=== PATIENT | female | born 1945 | race Caucasian/White ===

== ENCOUNTER → 2016-08-05 | Outpatient (CLI) | payer OTHER ==
[2016-08-05 09:14] LABS: Basophils # (auto) 0 uL; Basophils % (auto) 0.7 % (0.0-2.0); Eosinophils # (auto) 0.3 uL; Eosinophils % (auto) 4.8 % (0.0-7.0); Hematocrit 40.8 % (36.0-46.0); Hemoglobin 13.5 g/dL (12.2-16.2); Mean Corpuscular Hemoglobin 32.7 pg (28.0-32.0); Mean Corpuscular Hgb Conc. 33.1 g/dL (32.0-36.0); Mean Platelet Volume 8.7 fL (7.4-10.4); Monocytes # (auto) 0.6 uL; Monocytes % (auto) 8.7 % (0.0-12.0); Neutrophils # (auto) 3.5 uL; Neutrophils % (auto) 54.8 % (37.0-80.0); Platelet Count (auto) 254 10^3/uL (140-450); Red Cell Distribution Width 15.7 % (11.6-16.0); White Blood Cell 6.4 10^3/uL (4.4-10.8)
[2016-08-05 09:29] LABS: Urine Bilirubin Negative (Negative); Urine Blood Negative /uL (Negative); Urine Color Yellow (Yellow); Urine Glucose Normal (Normal); Urine Hyaline Cast FEW /lpf (0 - 2); Urine Ketone Negative (Negative); Urine Nitrite Negative (Negative); Urine RBC 1 /hpf (0 - 4); Urine Squamous Epithelial Cell FEW /hpf (<5); Urine Urobilinogen Normal (Negative)
[2016-08-05 09:48] LABS: Albumin 3.7 g/dL (3.4-5.0); BUN/Creatinine Ratio 20.9; Bilirubin, Total 0.5 mg/dL (0.2-1.0); Calcium 9.2 mg/dL (8.5-10.1); Potassium 4.3 mmol/L (3.5-5.1); Total Protein 7.3 g/dL (6.4-8.2); Uric Acid 6.8 mg/dL (2.6-6.0)
== END | disposition home or self-care (01) ==
LOC: LAB 08:01
PROVIDERS: ATTEND Internal Medicine
DX: N18.3 Chronic kidney disease, stage 3 (moderate) (principal); I10 Essential (primary) hypertension
CPT/HCPCS: 36415; 80053; 80061; 81001; 82043; 82270; 83970; 84439; 84443; 84550; 85025; 85652

== ENCOUNTER → 2017-03-01 | Outpatient (CLI) | payer OTHER ==
[2017-03-01 10:25] LABS: Mean Corpuscular Hgb Conc. 33.4 g/dL (32.0-36.0); Monocytes # (auto) 0.6 uL; Neutrophils % (auto) 58.9 % (37.0-80.0); Nucleated Red Blood Cells % 0.2 %
[2017-03-01 10:27] LABS: Basophils # (auto) 0 uL; Basophils % (auto) 0.6 % (0.0-2.0); Eosinophils # (auto) 0.3 uL; Eosinophils % (auto) 3.9 % (0.0-7.0); Hematocrit 39.4 % (36.0-46.0); Hemoglobin 13.2 g/dL (12.2-16.2); Lymphocytes # (auto) 2.2 uL; Lymphocytes % (auto) 28.9 % (10.0-50.0); Mean Corpuscular Hemoglobin 34.1 pg (28.0-32.0); Mean Corpuscular Volume 102.2 fL (80.0-100.0); Monocytes % (auto) 7.7 % (0.0-12.0); Neutrophils # (auto) 4.4 uL; Platelet Count (auto) 222 10^3/uL (140-450); Red Blood Cells 3.86 10^6/uL (4.0-5.20); Red Cell Distribution Width 17.2 % (11.8-14.3); White Blood Cell 7.5 10^3/uL (4.4-10.8)
[2017-03-01 11:17] LABS: Albumin 3.7 g/dL (3.4-5.0); BUN/Creatinine Ratio 18.1; Bilirubin, Total 0.7 mg/dL (0.2-1.0); Calcium 8.8 mg/dL (8.5-10.1); Potassium 4.5 mmol/L (3.5-5.1); Total Protein 7.4 g/dL (6.4-8.2)
== END | disposition home or self-care (01) ==
LOC: LAB 09:23
PROVIDERS: ATTEND Internal Medicine
DX: I12.9 Hypertensive chronic kidney disease with stage 1 through stage 4 chronic kidney disease, or unspecified chronic kidney disease (principal); N18.3 Chronic kidney disease, stage 3 (moderate)
CPT/HCPCS: 36415; 80053; 83970; 84439; 84443; 85025

== ENCOUNTER 2017-06-11 14:19 | Emergency (ER) | payer OTHER ==
[2017-06-11 15:22] LABS: Eosinophils # (auto) 0.2 uL; Eosinophils % (auto) 2.4 % (0.0-7.0); Hemoglobin 13.8 g/dL (12.2-16.2); Neutrophils # (auto) 5.2 uL; Nucleated Red Blood Cells % 0.1 %
[2017-06-11 15:23] LABS: Basophils # (auto) 0 uL; Basophils % (auto) 0.5 % (0.0-2.0); Hematocrit 41.6 % (36.0-46.0); Lymphocytes % (auto) 15.1 % (10.0-50.0); Mean Corpuscular Hgb Conc. 33.2 g/dL (32.0-36.0); Monocytes # (auto) 0.4 uL; Monocytes % (auto) 5.2 % (0.0-12.0); Neutrophils % (auto) 76.8 % (37.0-80.0); Platelet Count (auto) 254 10^3/uL (140-450); Red Blood Cells 3.92 10^6/uL (4.0-5.20); Red Cell Distribution Width 15.4 % (11.8-14.3); White Blood Cell 6.7 10^3/uL (4.4-10.8)
[2017-06-11 15:25] LABS: Mean Corpuscular Volume 105.7 fL (80.0-100.0)
[2017-06-11 15:43] LABS: Alanine Aminotransferase 21 U/L (13-56); Albumin 3.9 g/dL (3.4-5.0); Alkaline Phosphatase 85 U/L (45-117); Anion Gap 9 (5-15); Aspartate Aminotransferase 23 U/L (15-37); BUN/Creatinine Ratio 14.7; Bilirubin, Total 0.6 mg/dL (0.2-1.0); Blood Urea Nitrogen 22 mg/dL (7-18); Calcium 9.1 mg/dL (8.5-10.1); Carbon Dioxide 26 mmol/L (21-32); Chloride 106 mmol/L (98-107); GFR African American 44 mL/min; GFR Non-African American 36 mL/min; Glucose 162 mg/dL (74-106); Magnesium 2.7 mg/dL (1.6-2.6); Potassium 4.6 mmol/L (3.5-5.1); Sodium 141 mmol/L (136-145); Total Protein 7.8 g/dL (6.4-8.2)
[2017-06-11 16:02] LABS: Urine Bacteria FEW /hpf (None Seen); Urine Blood Negative /uL (Negative); Urine Specific Gravity 1.007 (1.001-1.035); Urine WBC 12 /hpf (0 - 5)
[2017-06-11 17:31] VITALS: BP 215/110
[2017-06-11] MEDS ORDERED: cloNIDine HCL 0.1 MG TAB PO ONE (17:45)
[2017-06-11] MEDS ORDERED: METOPROLOL TARTRATE 50 MG TAB PO ONE (17:45)
== END 2017-06-11 19:29 | disposition left against medical advice (07) ==
LOC: ER 14:19
DX: R00.2 Palpitations (principal); Z53.21 Procedure and treatment not carried out due to patient leaving prior to being seen by health care provider
CPT/HCPCS: 36415; 71046; 80053; 81001; 83735; 84484; 85025; 93005

== ENCOUNTER 2017-06-13 13:02 | Emergency (ER) | payer OTHER ==
[~2017-06-13] VITALS: Ht 149.9 cm; Wt 80.7 kg
[2017-06-13] MEDS ORDERED: cloNIDine HCL 0.1 MG TAB PO ONE (13:30)
[2017-06-13] MEDS ORDERED: LORazepam 2MG/ML-1ML VIAL IV ONE (13:30)
[2017-06-13 13:39] LABS: Basophils # (auto) 0.1 uL; Eosinophils # (auto) 0.2 uL; Lymphocytes # (auto) 1.4 uL; Monocytes # (auto) 0.8 uL; Neutrophils # (auto) 5.1 uL; White Blood Cell 7.6 10^3/uL (4.4-10.8)
[2017-06-13 13:41] LABS: Basophils % (auto) 0.9 % (0.0-2.0); Eosinophils % (auto) 2.9 % (0.0-7.0); Hematocrit 42.3 % (36.0-46.0); Hemoglobin 13.9 g/dL (12.2-16.2); Lymphocytes % (auto) 18.4 % (10.0-50.0); Mean Corpuscular Hemoglobin 34.8 pg (28.0-32.0); Mean Corpuscular Hgb Conc. 32.8 g/dL (32.0-36.0); Monocytes % (auto) 10.8 % (0.0-12.0); Nucleated Red Blood Cells % 0.1 %; Platelet Count (auto) 259 10^3/uL (140-450); Red Blood Cells 3.99 10^6/uL (4.0-5.20)
[2017-06-13 13:42] LABS: Mean Corpuscular Volume 105.7 fL (80.0-100.0)
[2017-06-13 14:01] LABS: Alanine Aminotransferase 21 U/L (13-56); Alkaline Phosphatase 80 U/L (45-117); Anion Gap 10 (5-15); Aspartate Aminotransferase 23 U/L (15-37); BUN/Creatinine Ratio 17.7; Bilirubin, Total 0.6 mg/dL (0.2-1.0); Blood Urea Nitrogen 26 mg/dL (7-18); Calcium 9.4 mg/dL (8.5-10.1); Carbon Dioxide 24 mmol/L (21-32); Chloride 104 mmol/L (98-107); GFR African American 45 mL/min; GFR Non-African American 37 mL/min; Glucose 100 mg/dL (74-106); Potassium 4.6 mmol/L (3.5-5.1); Sodium 138 mmol/L (136-145)
[2017-06-13] MEDS ORDERED: IOHEXOL 350 MG/ML 100ML IJ ONE (15:04)
[2017-06-13 18:19] VITALS: BP 128/71
== END 2017-06-13 18:23 | disposition home or self-care (01) ==
LOC: ER 13:02 → MERGE 13:02 → ER 18:23
DX: I10 Essential (primary) hypertension (principal); Z88.8 Allergy status to other drugs, medicaments and biological substances
CPT/HCPCS: 36415; 70450; 71046; 74177; 80053; 84484; 85025; 87804; 93005; 99285; J7030; Q9967

== ENCOUNTER → 2017-08-28 | Outpatient (CLI) | payer OTHER ==
[2017-08-28 09:04] LABS: Basophils # (auto) 0 uL; Eosinophils # (auto) 0.2 uL; Hemoglobin 13.7 g/dL (12.2-16.2); Lymphocytes # (auto) 1.6 uL; Monocytes # (auto) 0.4 uL; Neutrophils # (auto) 3.1 uL; White Blood Cell 5.3 10^3/uL (4.4-10.8)
[2017-08-28 09:06] LABS: Basophils % (auto) 0.7 % (0.0-2.0); Eosinophils % (auto) 4.2 % (0.0-7.0); Hematocrit 40.5 % (36.0-46.0); Lymphocytes % (auto) 29.5 % (10.0-50.0); Mean Corpuscular Hemoglobin 35.2 pg (28.0-32.0); Mean Corpuscular Hgb Conc. 33.8 g/dL (32.0-36.0); Monocytes % (auto) 7.3 % (0.0-12.0); Neutrophils % (auto) 58.3 % (37.0-80.0); Nucleated Red Blood Cells % 0.1 %; Platelet Count (auto) 214 10^3/uL (140-450); Red Blood Cells 3.89 10^6/uL (4.0-5.20)
[2017-08-28 09:07] LABS: Urine Bacteria NONE SEEN /hpf (None Seen); Urine Blood Negative /uL (Negative); Urine Specific Gravity 1.022 (1.001-1.035); Urine WBC 27 /hpf (0 - 5)
[2017-08-28 09:33] LABS: BUN/Creatinine Ratio 20.1; Potassium 4.6 mmol/L (3.5-5.1)
[2017-08-28 09:34] LABS: Albumin 3.8 g/dL (3.4-5.0); Bilirubin, Total 0.7 mg/dL (0.2-1.0); Calcium 9.2 mg/dL (8.5-10.1); Total Protein 7.3 g/dL (6.4-8.2); Uric Acid 6.7 mg/dL (2.6-6.0)
[2017-08-28 10:45] LABS: Free T4 (Free Thyroxine) 1.52 ng/dL (0.89-1.76)
== END | disposition home or self-care (01) ==
LOC: LAB 07:53
PROVIDERS: ATTEND Internal Medicine
DX: I12.9 Hypertensive chronic kidney disease with stage 1 through stage 4 chronic kidney disease, or unspecified chronic kidney disease (principal); N18.3 Chronic kidney disease, stage 3 (moderate); R00.2 Palpitations
CPT/HCPCS: 36415; 80053; 80061; 81001; 82043; 82607; 84439; 84443; 84550; 85025; 85652

== ENCOUNTER → 2017-12-07 | Outpatient (CLI) | payer OTHER ==
[2017-12-07 09:35] LABS: Basophils # (auto) 0 uL; Basophils % (auto) 0.8 % (0.0-2.0); Eosinophils # (auto) 0.2 uL; Eosinophils % (auto) 3.9 % (0.0-7.0); Hematocrit 42.9 % (36.0-46.0); Hemoglobin 13.9 g/dL (12.2-16.2); Lymphocytes # (auto) 1.5 uL; Mean Corpuscular Hemoglobin 27.8 pg (28.0-32.0); Mean Corpuscular Hgb Conc. 32.4 g/dL (32.0-36.0); Mean Corpuscular Volume 85.9 fL (80.0-100.0); Monocytes # (auto) 0.6 uL; Monocytes % (auto) 10.6 % (0.0-12.0); Neutrophils # (auto) 3.5 uL; Neutrophils % (auto) 59.7 % (37.0-80.0); Platelet Count (auto) 222 10^3/uL (140-450); Red Blood Cells 4.99 10^6/uL (4.0-5.20); Red Cell Distribution Width 14.7 % (11.8-14.3); White Blood Cell 5.8 10^3/uL (4.4-10.8)
[2017-12-07 09:57] LABS: Albumin 3.6 g/dL (3.4-5.0); BUN/Creatinine Ratio 13.3; Bilirubin, Total 0.7 mg/dL (0.2-1.0); Calcium 8.6 mg/dL (8.5-10.1); Potassium 4.1 mmol/L (3.5-5.1); Total Protein 7.3 g/dL (6.4-8.2)
== END | disposition home or self-care (01) ==
LOC: LAB 09:08
PROVIDERS: ATTEND Internal Medicine
DX: Z12.11 Encounter for screening for malignant neoplasm of colon (principal); I12.9 Hypertensive chronic kidney disease with stage 1 through stage 4 chronic kidney disease, or unspecified chronic kidney disease; N18.3 Chronic kidney disease, stage 3 (moderate); Z88.8 Allergy status to other drugs, medicaments and biological substances
CPT/HCPCS: 36415; 80053; 82270; 83970; 84550; 85025

== ENCOUNTER → 2018-07-27 | Outpatient (CLI) | payer OTHER ==
[2018-07-27 09:23] LABS: Basophils # (auto) 0.1 uL; Basophils % (auto) 0.9 % (0.0-2.0); Eosinophils # (auto) 0.3 uL; Eosinophils % (auto) 4.8 % (0.0-7.0); Hematocrit 43.8 % (36.0-46.0); Hemoglobin 14.2 g/dL (12.2-16.2); Lymphocytes # (auto) 1.7 uL; Mean Corpuscular Hemoglobin 27.1 pg (28.0-32.0); Mean Corpuscular Hgb Conc. 32.5 g/dL (32.0-36.0); Mean Corpuscular Volume 83.7 fL (80.0-100.0); Monocytes # (auto) 0.6 uL; Monocytes % (auto) 10.4 % (0.0-12.0); Neutrophils # (auto) 3.1 uL; Neutrophils % (auto) 54.9 % (37.0-80.0); Nucleated Red Blood Cells % 0.2 %; Platelet Count (auto) 223 10^3/uL (140-450); Red Blood Cells 5.24 10^6/uL (4.0-5.20); Red Cell Distribution Width 14.6 % (11.8-14.3); White Blood Cell 5.7 10^3/uL (4.4-10.8)
[2018-07-27 09:26] LABS: Urine Bacteria NONE SEEN /hpf (None Seen); Urine Blood TRACE /uL (Negative); Urine WBC 8 /hpf (0 - 5)
[2018-07-27 09:38] LABS: Free T4 (Free Thyroxine) 1.43 ng/dL (0.89-1.76)
[2018-07-27 10:58] LABS: Albumin 3.6 g/dL (3.4-5.0); BUN/Creatinine Ratio 13.5; Bilirubin, Total 0.6 mg/dL (0.2-1.0); Calcium 9.2 mg/dL (8.5-10.1); Total Protein 6.8 g/dL (6.4-8.2); Uric Acid 5.6 mg/dL (2.6-6.0)
== END | disposition home or self-care (01) ==
LOC: LAB 08:34
PROVIDERS: ATTEND Internal Medicine
DX: I12.9 Hypertensive chronic kidney disease with stage 1 through stage 4 chronic kidney disease, or unspecified chronic kidney disease (principal); N18.3 Chronic kidney disease, stage 3 (moderate)
CPT/HCPCS: 36415; 80053; 80061; 81001; 82043; 82607; 83970; 84439; 84443; 84550; 85025; 85652

== ENCOUNTER → 2018-12-24 | Outpatient (CLI) | payer OTHER ==
[2018-12-24 09:45] LABS: Urine Bacteria NONE SEEN /hpf (None Seen); Urine Blood Negative /uL (Negative); Urine Specific Gravity 1.008 (1.001-1.035); Urine WBC 7 /hpf (0 - 5)
== END | disposition home or self-care (01) ==
LOC: LAB 09:23
PROVIDERS: ATTEND Internal Medicine
DX: R31.29 Other microscopic hematuria (principal)
CPT/HCPCS: 81001

== ENCOUNTER → 2019-01-04 | Outpatient (CLI) | payer OTHER ==
[2019-01-04 10:35] LABS: Basophils # (auto) 0 uL; Basophils % (auto) 0.6 % (0.0-2.0); Eosinophils # (auto) 0.3 uL; Hematocrit 43.3 % (36.0-46.0); Hemoglobin 14.3 g/dL (12.2-16.2); Lymphocytes # (auto) 1.6 uL; Lymphocytes % (auto) 24.8 % (10.0-50.0); Mean Corpuscular Hgb Conc. 33.1 g/dL (32.0-36.0); Mean Corpuscular Volume 84.7 fL (80.0-100.0); Monocytes # (auto) 0.7 uL; Monocytes % (auto) 10.2 % (0.0-12.0); Neutrophils # (auto) 3.9 uL; Neutrophils % (auto) 60.4 % (37.0-80.0); Platelet Count (auto) 225 10^3/uL (140-450); Red Blood Cells 5.12 10^6/uL (4.0-5.20); Red Cell Distribution Width 14.3 % (11.8-14.3); White Blood Cell 6.5 10^3/uL (4.4-10.8)
[2019-01-04 10:52] LABS: Albumin 3.8 g/dL (3.4-5.0); Calcium 9.4 mg/dL (8.5-10.1)
[2019-01-04 10:57] LABS: BUN/Creatinine Ratio 15.5; Bilirubin, Total 0.7 mg/dL (0.2-1.0); Total Protein 7.4 g/dL (6.4-8.2)
== END | disposition home or self-care (01) ==
LOC: LAB 09:28
PROVIDERS: ATTEND Internal Medicine
DX: I12.9 Hypertensive chronic kidney disease with stage 1 through stage 4 chronic kidney disease, or unspecified chronic kidney disease (principal); N18.3 Chronic kidney disease, stage 3 (moderate); R35.1 Nocturia
CPT/HCPCS: 36415; 80053; 82270; 83036; 83970; 84439; 84443; 85025

== ENCOUNTER → 2019-01-31 | Outpatient (CLI) | payer OTHER ==
[2019-01-31 16:32] LABS: Urine Bacteria NONE SEEN /hpf (None Seen); Urine Blood Negative /uL (Negative); Urine Specific Gravity 1.009 (1.001-1.035); Urine WBC 6 /hpf (0 - 5)
[2019-01-31 16:44] LABS: Basophils # (auto) 0.1 uL; Basophils % (auto) 1.3 % (0.0-2.0); Eosinophils # (auto) 0.2 uL; Eosinophils % (auto) 3.5 % (0.0-7.0); Hematocrit 43.3 % (36.0-46.0); Hemoglobin 14.3 g/dL (12.2-16.2); Lymphocytes # (auto) 1.5 uL; Lymphocytes % (auto) 20.9 % (10.0-50.0); Mean Corpuscular Hemoglobin 27.9 pg (28.0-32.0); Mean Corpuscular Volume 84.7 fL (80.0-100.0); Monocytes # (auto) 0.7 uL; Neutrophils # (auto) 4.5 uL; Neutrophils % (auto) 64.3 % (37.0-80.0); Platelet Count (auto) 237 10^3/uL (140-450); Red Blood Cells 5.12 10^6/uL (4.0-5.20); Red Cell Distribution Width 14.2 % (11.8-14.3)
[2019-01-31 16:52] LABS: Albumin 3.7 g/dL (3.4-5.0); Calcium 9.1 mg/dL (8.5-10.1); Potassium 4.3 mmol/L (3.5-5.1)
[2019-01-31 16:56] LABS: BUN/Creatinine Ratio 14.8; Bilirubin, Total 0.4 mg/dL (0.2-1.0); Total Protein 7.2 g/dL (6.4-8.2)
== END | disposition home or self-care (01) ==
LOC: LAB 16:00
PROVIDERS: ATTEND Internal Medicine
DX: R21 Rash and other nonspecific skin eruption (principal); I10 Essential (primary) hypertension
CPT/HCPCS: 36415; 80053; 81001; 84439; 84443; 85025; 85652; 87040

== ENCOUNTER → 2019-09-17 | Outpatient (CLI) | payer OTHER ==
[2019-09-17 09:50] LABS: Basophils # (auto) 0.1 10 ^3/uL (0-0.2); Basophils % (auto) 1.2 % (0.0-2.0); Eosinophils # (auto) 0.3 10 ^3/uL (0-0.8); Eosinophils % (auto) 4.2 % (0.0-7.0); Hemoglobin 14.5 g/dL (12.2-16.2); Lymphocytes # (auto) 1.3 10 ^3/uL (0.4-5.4); Lymphocytes % (auto) 20.3 % (10.0-50.0); Mean Corpuscular Hemoglobin 27.7 pg (28.0-32.0); Mean Corpuscular Hgb Conc. 32.9 g/dL (32.0-36.0); Mean Corpuscular Volume 84.1 fL (80.0-100.0); Monocytes # (auto) 0.6 10 ^3/uL (0-1.3); Neutrophils % (auto) 65.3 % (37.0-80.0); Platelet Count (auto) 214 10^3/uL (140-450); Red Blood Cells 5.23 10^6/uL (4.0-5.20); Red Cell Distribution Width 14.3 % (11.8-14.3); White Blood Cell 6.2 10^3/uL (4.4-10.8)
[2019-09-17 09:58] LABS: Urine Bacteria NONE SEEN /hpf (None Seen); Urine Blood Negative /uL (Negative); Urine Specific Gravity 1.017 (1.001-1.035); Urine WBC 15 /hpf (0 - 5)
[2019-09-17 10:21] LABS: Calcium 8.9 mg/dL (8.5-10.1); Potassium 4.4 mmol/L (3.5-5.1)
[2019-09-17 10:34] LABS: Albumin 3.5 g/dL (3.4-5.0); BUN/Creatinine Ratio 16.8; Bilirubin, Total 0.6 mg/dL (0.2-1.0); Uric Acid 5.6 mg/dL (2.6-6.0)
== END | disposition home or self-care (01) ==
LOC: LAB 09:24
PROVIDERS: ATTEND Internal Medicine
DX: I12.9 Hypertensive chronic kidney disease with stage 1 through stage 4 chronic kidney disease, or unspecified chronic kidney disease (principal); N18.3 Chronic kidney disease, stage 3 (moderate); E05.80 Other thyrotoxicosis without thyrotoxic crisis or storm
CPT/HCPCS: 36415; 80053; 80061; 81001; 82043; 83970; 84439; 84443; 84550; 85025; 85652

== ENCOUNTER → 2019-10-29 | Outpatient (CLI) | payer OTHER ==
[2019-10-29 10:25] LABS: Basophils # (auto) 0.1 10 ^3/uL (0-0.2); Basophils % (auto) 1.3 % (0.0-2.0); Eosinophils # (auto) 0.2 10 ^3/uL (0-0.8); Eosinophils % (auto) 3.4 % (0.0-7.0); Hematocrit 43.9 % (36.0-46.0); Hemoglobin 14.5 g/dL (12.2-16.2); Lymphocytes # (auto) 1.5 10 ^3/uL (0.4-5.4); Lymphocytes % (auto) 23.9 % (10.0-50.0); Mean Corpuscular Hemoglobin 27.9 pg (28.0-32.0); Mean Corpuscular Hgb Conc. 33.1 g/dL (32.0-36.0); Mean Corpuscular Volume 84.3 fL (80.0-100.0); Monocytes # (auto) 0.6 10 ^3/uL (0-1.3); Monocytes % (auto) 10.3 % (0.0-12.0); Neutrophils # (auto) 3.8 10 ^3/uL (1.6-8.6); Neutrophils % (auto) 61.1 % (37.0-80.0); Platelet Count (auto) 232 10^3/uL (140-450); Red Blood Cells 5.21 10^6/uL (4.0-5.20); Red Cell Distribution Width 14.1 % (11.8-14.3); White Blood Cell 6.2 10^3/uL (4.4-10.8)
[2019-10-29 10:36] LABS: Urine Bacteria NONE SEEN /hpf (None Seen); Urine Blood Negative /uL (Negative); Urine Specific Gravity 1.015 (1.001-1.035); Urine WBC <1 /hpf (0 - 5)
[2019-10-29 11:03] LABS: Albumin 3.6 g/dL (3.4-5.0); Calcium 8.9 mg/dL (8.5-10.1); Potassium 4.2 mmol/L (3.5-5.1)
[2019-10-29 11:07] LABS: BUN/Creatinine Ratio 18.9; Bilirubin, Total 0.6 mg/dL (0.2-1.0); Total Protein 7.4 g/dL (6.4-8.2); Uric Acid 5.6 mg/dL (2.6-6.0)
[2019-10-29 11:14] LABS: Free T4 (Free Thyroxine) 1.34 ng/dL (0.89-1.76)
== END | disposition home or self-care (01) ==
LOC: LAB 09:48
PROVIDERS: ATTEND Internal Medicine
DX: I12.9 Hypertensive chronic kidney disease with stage 1 through stage 4 chronic kidney disease, or unspecified chronic kidney disease (principal); N18.3 Chronic kidney disease, stage 3 (moderate); M46.1 Sacroiliitis, not elsewhere classified
CPT/HCPCS: 36415; 80053; 81001; 82306; 82607; 83970; 84439; 84443; 84550; 85025; 85652; 86038; 86200; 86431

== ENCOUNTER → 2020-02-21 | Outpatient (CLI) | payer OTHER ==
[2020-02-21 10:31] LABS: Basophils # (auto) 0.1 10 ^3/uL (0-0.2); Basophils % (auto) 1.7 % (0.0-2.0); Eosinophils # (auto) 0.3 10 ^3/uL (0-0.8); Eosinophils % (auto) 4.1 % (0.0-7.0); Hematocrit 46.7 % (36.0-46.0); Hemoglobin 15.5 g/dL (12.2-16.2); Lymphocytes # (auto) 1.5 10 ^3/uL (0.4-5.4); Lymphocytes % (auto) 22.7 % (10.0-50.0); Mean Corpuscular Hemoglobin 28.4 pg (28.0-32.0); Mean Corpuscular Hgb Conc. 33.3 g/dL (32.0-36.0); Mean Corpuscular Volume 85.4 fL (80.0-100.0); Monocytes # (auto) 0.8 10 ^3/uL (0-1.3); Monocytes % (auto) 11.9 % (0.0-12.0); Neutrophils % (auto) 59.6 % (37.0-80.0); Nucleated Red Blood Cells % 0.1 %; Platelet Count (auto) 226 10^3/uL (140-450); Red Blood Cells 5.47 10^6/uL (4.0-5.20); Red Cell Distribution Width 14.2 % (11.8-14.3); White Blood Cell 6.7 10^3/uL (4.4-10.8)
[2020-02-21 10:33] LABS: Albumin 3.6 g/dL (3.4-5.0); Calcium 9.3 mg/dL (8.5-10.1); Potassium 4.3 mmol/L (3.5-5.1)
[2020-02-21 10:37] LABS: BUN/Creatinine Ratio 23.9; Bilirubin, Total 0.5 mg/dL (0.2-1.0); Total Protein 7.2 g/dL (6.4-8.2); Uric Acid 6.7 mg/dL (2.6-6.0)
== END | disposition home or self-care (01) ==
LOC: LAB 09:42
PROVIDERS: ATTEND Internal Medicine
DX: I12.9 Hypertensive chronic kidney disease with stage 1 through stage 4 chronic kidney disease, or unspecified chronic kidney disease (principal); N18.30 Chronic kidney disease, stage 3 unspecified
CPT/HCPCS: 36415; 80053; 83970; 84443; 84550; 85025

== ENCOUNTER → 2020-06-05 | Outpatient (CLI) | payer OTHER ==
[2020-06-05 10:12] LABS: Basophils # (auto) 0.1 10 ^3/uL (0-0.2); Eosinophils # (auto) 0.3 10 ^3/uL (0-0.8); Eosinophils % (auto) 4.1 % (0.0-7.0); Hematocrit 42.2 % (36.0-46.0); Hemoglobin 14.3 g/dL (12.2-16.2); Lymphocytes # (auto) 1.4 10 ^3/uL (0.4-5.4); Lymphocytes % (auto) 21.4 % (10.0-50.0); Mean Corpuscular Hemoglobin 28.9 pg (28.0-32.0); Mean Corpuscular Hgb Conc. 33.8 g/dL (32.0-36.0); Mean Corpuscular Volume 85.6 fL (80.0-100.0); Monocytes # (auto) 0.7 10 ^3/uL (0-1.3); Monocytes % (auto) 11.2 % (0.0-12.0); Neutrophils % (auto) 62.3 % (37.0-80.0); Platelet Count (auto) 225 10^3/uL (140-450); Red Blood Cells 4.93 10^6/uL (4.0-5.20); Red Cell Distribution Width 13.8 % (11.8-14.3); White Blood Cell 6.4 10^3/uL (4.4-10.8)
[2020-06-05 10:18] LABS: Urine Bacteria NONE SEEN /hpf (None Seen); Urine Blood Negative /uL (Negative); Urine Specific Gravity 1.018 (1.001-1.035); Urine WBC 13 /hpf (0 - 5)
[2020-06-05 10:40] LABS: Potassium 4.8 mmol/L (3.5-5.1)
[2020-06-05 10:49] LABS: Albumin 3.5 g/dL (3.4-5.0); Bilirubin, Total 0.6 mg/dL (0.2-1.0); Calcium 8.8 mg/dL (8.5-10.1); Phosphorus 3.4 mg/dL (2.5-4.90); Total Protein 7.2 g/dL (6.4-8.2); Uric Acid 8.3 mg/dL (2.6-6.0)
== END | disposition home or self-care (01) ==
LOC: LAB 09:46
PROVIDERS: ATTEND Internal Medicine
DX: I12.9 Hypertensive chronic kidney disease with stage 1 through stage 4 chronic kidney disease, or unspecified chronic kidney disease (principal); N18.30 Chronic kidney disease, stage 3 unspecified; Z86.2 Personal history of diseases of the blood and blood-forming organs and certain disorders involving the immune mechanism
CPT/HCPCS: 36415; 80053; 80061; 81001; 83970; 84100; 84439; 84443; 84550; 85025

== ENCOUNTER 2020-07-31 12:29 | Emergency (ER) | payer OTHER ==
[~2020-07-31] VITALS: Ht 152.4 cm; Wt 83.5 kg
[2020-07-31] MEDS ORDERED: cefTRIAXone 1GM/50ML D5W 50 ML IV ONE (15:15)
[2020-07-31 15:40] LABS: Basophils # (auto) 0.1 10 ^3/uL (0-0.2); Basophils % (auto) 0.6 % (0.0-2.0); Eosinophils # (auto) 0.2 10 ^3/uL (0-0.8); Hematocrit 46.2 % (36.0-46.0); Hemoglobin 15.7 g/dL (12.2-16.2); Lymphocytes # (auto) 1.7 10 ^3/uL (0.4-5.4); Mean Corpuscular Hemoglobin 29.1 pg (28.0-32.0); Mean Corpuscular Volume 85.7 fL (80.0-100.0); Monocytes # (auto) 0.9 10 ^3/uL (0-1.3); Monocytes % (auto) 9.4 % (0.0-12.0); Neutrophils # (auto) 6.5 10 ^3/uL (1.6-8.6); Nucleated Red Blood Cells % 0.1 %; Platelet Count (auto) 203 10^3/uL (140-450); Red Blood Cells 5.39 10^6/uL (4.0-5.20); Red Cell Distribution Width 13.8 % (11.8-14.3); White Blood Cell 9.3 10^3/uL (4.4-10.8)
[2020-07-31 15:58] LABS: BUN/Creatinine Ratio 18.4; Calcium 9.5 mg/dL (8.5-10.1); Potassium 4.8 mmol/L (3.5-5.1)
[2020-07-31] MEDS ORDERED: KETOROLAC TROMETH 30 MG/ML 1ML VIAL IV ONE (16:30)
== END 2020-07-31 17:01 | disposition home or self-care (01) ==
LOC: ER 12:29
DX: I80.02 Phlebitis and thrombophlebitis of superficial vessels of left lower extremity (principal); I83.812 Varicose veins of left lower extremity with pain; I10 Essential (primary) hypertension; E78.5 Hyperlipidemia, unspecified
CPT/HCPCS: 36415; 80048; 85025; 93971; 96365; 96375; 99284; J0696; J1885

== ENCOUNTER → 2020-11-04 | Outpatient (CLI) | payer OTHER ==
[2020-11-04 12:05] LABS: Basophils # (auto) 0.1 10 ^3/uL (0-0.2); Basophils % (auto) 1.1 % (0.0-2.0); Eosinophils # (auto) 0.1 10 ^3/uL (0-0.8); Eosinophils % (auto) 1.9 % (0.0-7.0); Hematocrit 42.8 % (36.0-46.0); Hemoglobin 14.6 g/dL (12.2-16.2); Lymphocytes # (auto) 1.3 10 ^3/uL (0.4-5.4); Lymphocytes % (auto) 20.4 % (10.0-50.0); Mean Corpuscular Hemoglobin 29.1 pg (28.0-32.0); Mean Corpuscular Volume 85.6 fL (80.0-100.0); Monocytes # (auto) 0.6 10 ^3/uL (0-1.3); Monocytes % (auto) 9.9 % (0.0-12.0); Neutrophils # (auto) 4.3 10 ^3/uL (1.6-8.6); Neutrophils % (auto) 66.7 % (37.0-80.0); Nucleated Red Blood Cells % 0.1 %; Platelet Count (auto) 200 10^3/uL (140-450); Red Blood Cells 5.01 10^6/uL (4.0-5.20); Red Cell Distribution Width 15.1 % (11.8-14.3); White Blood Cell 6.5 10^3/uL (4.4-10.8)
[2020-11-04 12:49] LABS: Albumin 3.7 g/dL (3.4-5.0); Calcium 9.3 mg/dL (8.5-10.1)
[2020-11-04 12:52] LABS: BUN/Creatinine Ratio 15.1; Bilirubin, Total 0.5 mg/dL (0.2-1.0); Total Protein 7.3 g/dL (6.4-8.2); Uric Acid 4.9 mg/dL (2.6-6.0)
== END | disposition home or self-care (01) ==
LOC: LAB 11:45
PROVIDERS: ATTEND Internal Medicine
DX: I12.9 Hypertensive chronic kidney disease with stage 1 through stage 4 chronic kidney disease, or unspecified chronic kidney disease (principal); N18.30 Chronic kidney disease, stage 3 unspecified
CPT/HCPCS: 36415; 80053; 84550; 85025; 85049

== ENCOUNTER 2020-12-30 12:22 | Day surgery (SDC) | payer OTHER ==
[2020-12-25 10:53] LABS: Basophils # (auto) 0.1 10 ^3/uL (0-0.2); Basophils % (auto) 1.1 % (0.0-2.0); Eosinophils # (auto) 0.1 10 ^3/uL (0-0.8); Eosinophils % (auto) 2.1 % (0.0-7.0); Hematocrit 43.4 % (36.0-46.0); Hemoglobin 14.6 g/dL (12.2-16.2); Lymphocytes # (auto) 1.1 10 ^3/uL (0.4-5.4); Lymphocytes % (auto) 16.1 % (10.0-50.0); Mean Corpuscular Hgb Conc. 33.6 g/dL (32.0-36.0); Mean Corpuscular Volume 86.4 fL (80.0-100.0); Monocytes # (auto) 0.7 10 ^3/uL (0-1.3); Monocytes % (auto) 9.5 % (0.0-12.0); Neutrophils # (auto) 4.9 10 ^3/uL (1.6-8.6); Neutrophils % (auto) 71.2 % (37.0-80.0); Nucleated Red Blood Cells % 0.1 %; Red Blood Cells 5.03 10^6/uL (4.0-5.20); Red Cell Distribution Width 14.7 % (11.8-14.3); White Blood Cell 6.9 10^3/uL (4.4-10.8)
[2020-12-25 11:21] LABS: Potassium 5.1 mmol/L (3.5-5.1)
[2020-12-25 11:28] LABS: Albumin 3.5 g/dL (3.4-5.0); Bilirubin, Total 0.5 mg/dL (0.2-1.0); Calcium 8.6 mg/dL (8.5-10.1); Total Protein 7.2 g/dL (6.4-8.2)
[~2020-12-30] VITALS: Ht 152.4 cm; Wt 82.6 kg
[~2020-12-30 12:22] MED LIST: ACET-1304 PO; ALLO300T2 PO; ASCO500T11 PO; ASPI1TAB20 PO; ATOR10TA PO; CHOL400T21 PO; CLON0.1T EXT; CYA100I IM; ENAL20TA8 PO; LATA0.0019 EACHEYE; LEVO75TA6 PO; METO25TA93 PO
[2020-12-30] MEDS ORDERED: SODIUM CHLORIDE LOCK 10 ML ONE (12:39)
[2020-12-30] MEDS ORDERED: LIDOCAINE VISCOUS 2% 15ML UD ONE (12:39)
[2020-12-30] MEDS: fentaNYL CITRATE 100 MCG/2 ML VL ONE ×3 (13:53→14:00)
[2020-12-30] MEDS: MIDAZOLAM HCL 5 MG/ML-1ML VIAL ONE ×3 (13:53→14:03)
[2020-12-30] MEDS: diphenhdrAMINE HCL 50 MG/1 ML VL ONE ×2 (13:53→13:56)
[2020-12-30 14:45] VITALS: BP 136/64
== END 2020-12-30 14:50 | disposition home or self-care (01) ==
LOC: GI 12:22
PROVIDERS: ATTEND Internal Medicine Gastroenterology
DX: R13.10 Dysphagia, unspecified (principal); K31.89 Other diseases of stomach and duodenum; K29.50 Unspecified chronic gastritis without bleeding; I10 Essential (primary) hypertension; E78.5 Hyperlipidemia, unspecified; K21.9 Gastro-esophageal reflux disease without esophagitis; K44.9 Diaphragmatic hernia without obstruction or gangrene; K31.9 Disease of stomach and duodenum, unspecified; Z20.822 Contact with and (suspected) exposure to COVID-19; Z79.82 Long term (current) use of aspirin; Z98.890 Other specified postprocedural states; Z88.1 Allergy status to other antibiotic agents; Z88.8 Allergy status to other drugs, medicaments and biological substances; Z68.35 Body mass index [BMI] 35.0-35.9, adult
CPT/HCPCS: 36415; 43239; 43450; 80053; 85025; J1200; J2250; J3010; J7030; U0003; 99152

== ENCOUNTER → 2021-02-24 | Day surgery (SDC) | payer OTHER ==
[2021-02-19 10:45] LABS: Basophils # (auto) 0.1 10 ^3/uL (0-0.2); Basophils % (auto) 0.9 % (0.0-2.0); Eosinophils # (auto) 0.3 10 ^3/uL (0-0.8); Eosinophils % (auto) 3.7 % (0.0-7.0); Hematocrit 45.8 % (36.0-46.0); Lymphocytes # (auto) 1.4 10 ^3/uL (0.4-5.4); Lymphocytes % (auto) 20.4 % (10.0-50.0); Mean Corpuscular Hemoglobin 28.5 pg (28.0-32.0); Mean Corpuscular Hgb Conc. 32.8 g/dL (32.0-36.0); Monocytes # (auto) 0.7 10 ^3/uL (0-1.3); Monocytes % (auto) 10.1 % (0.0-12.0); Neutrophils # (auto) 4.5 10 ^3/uL (1.6-8.6); Neutrophils % (auto) 64.9 % (37.0-80.0); Red Blood Cells 5.27 10^6/uL (4.0-5.20); Red Cell Distribution Width 14.8 % (11.8-14.3); White Blood Cell 6.9 10^3/uL (4.4-10.8)
[2021-02-19 11:24] LABS: Albumin 3.5 g/dL (3.4-5.0); Calcium 9.4 mg/dL (8.5-10.1); Potassium 4.9 mmol/L (3.5-5.1)
[2021-02-19 11:28] LABS: BUN/Creatinine Ratio 17.6; Bilirubin, Total 0.6 mg/dL (0.2-1.0); Total Protein 7.4 g/dL (6.4-8.2)
[~2021-02-24] VITALS: Ht 152.4 cm; Wt 82.6 kg
[~2021-02-24] MED LIST changes: +SODIUM CHLORIDE LOCK 10 ML ONE
[2021-02-24] MEDS: diphenhdrAMINE HCL 50 MG/1 ML VL ONE ×2 (13:52→13:55)
[2021-02-24] MEDS: MIDAZOLAM HCL 5 MG/ML-1ML VIAL ONE ×4 (13:52→14:04)
[2021-02-24] MEDS: fentaNYL CITRATE 100 MCG/2 ML VL ONE ×2 (13:52→13:55)
[2021-02-24 14:50] VITALS: BP 144/64
== END | disposition home or self-care (01) ==
LOC: GI 12:54
PROVIDERS: ATTEND Internal Medicine Gastroenterology
DX: R19.4 Change in bowel habit (principal); D12.3 Benign neoplasm of transverse colon; K62.1 Rectal polyp; K63.89 Other specified diseases of intestine; K57.30 Diverticulosis of large intestine without perforation or abscess without bleeding; K64.0 First degree hemorrhoids; I10 Essential (primary) hypertension; E78.5 Hyperlipidemia, unspecified; E03.9 Hypothyroidism, unspecified; M10.9 Gout, unspecified; Z90.710 Acquired absence of both cervix and uterus; Z98.890 Other specified postprocedural states; Z79.899 Other long term (current) drug therapy; Z88.3 Allergy status to other anti-infective agents; Z88.8 Allergy status to other drugs, medicaments and biological substances; Z20.822 Contact with and (suspected) exposure to COVID-19
CPT/HCPCS: 36415; 45385; 80053; 85025; 88305; J1200; J2250; J3010; J7030; U0003; 99152

== ENCOUNTER → 2021-05-24 | Outpatient (CLI) | payer OTHER ==
[~2021-05-24] MED LIST changes: -SODIUM CHLORIDE LOCK 10 ML ONE
[2021-05-24 10:48] LABS: Basophils # (auto) 0.1 10 ^3/uL (0-0.2); Basophils % (auto) 0.8 % (0.0-2.0); Eosinophils # (auto) 0.2 10 ^3/uL (0-0.8); Eosinophils % (auto) 3.7 % (0.0-7.0); Hematocrit 43.7 % (36.0-46.0); Hemoglobin 14.4 g/dL (12.2-16.2); Lymphocytes # (auto) 1.3 10 ^3/uL (0.4-5.4); Lymphocytes % (auto) 20.8 % (10.0-50.0); Mean Corpuscular Hemoglobin 28.6 pg (28.0-32.0); Mean Corpuscular Hgb Conc. 32.9 g/dL (32.0-36.0); Mean Corpuscular Volume 86.8 fL (80.0-100.0); Monocytes # (auto) 0.6 10 ^3/uL (0-1.3); Neutrophils % (auto) 64.7 % (37.0-80.0); Red Blood Cells 5.03 10^6/uL (4.0-5.20); Red Cell Distribution Width 14.9 % (11.8-14.3); White Blood Cell 6.2 10^3/uL (4.4-10.8)
[2021-05-24 10:55] LABS: Urine Bacteria NONE SEEN /hpf (None Seen); Urine Blood Negative /uL (Negative); Urine Specific Gravity 1.019 (1.001-1.035); Urine WBC 2 /hpf (0 - 5)
[2021-05-24 11:21] LABS: Potassium 4.4 mmol/L (3.5-5.1)
[2021-05-24 11:34] LABS: Albumin 3.7 g/dL (3.4-5.0); BUN/Creatinine Ratio 16.1; Bilirubin, Total 0.6 mg/dL (0.2-1.0); Calcium 9.1 mg/dL (8.5-10.1); Total Protein 7.2 g/dL (6.4-8.2); Uric Acid 5.2 mg/dL (2.6-6.0)
[2021-05-25 13:28] LABS: Free T4 (Free Thyroxine) 1.62 ng/dL (0.89-1.76)
== END | disposition home or self-care (01) ==
LOC: LAB 09:40
PROVIDERS: ATTEND Internal Medicine
DX: N18.30 Chronic kidney disease, stage 3 unspecified (principal); I12.9 Hypertensive chronic kidney disease with stage 1 through stage 4 chronic kidney disease, or unspecified chronic kidney disease
CPT/HCPCS: 36415; 80053; 80061; 81001; 82043; 82306; 82607; 83970; 84439; 84443; 84550; 85025; 85652

== ENCOUNTER → 2021-07-13 | Outpatient (CLI) | payer OTHER | END | disposition home or self-care (01) | LOC: XYW 10:00 | PROVIDERS: ATTEND Internal Medicine | DX: I08.2 Rheumatic disorders of both aortic and tricuspid valves (principal); I10 Essential (primary) hypertension | CPT/HCPCS: 93306 ==

== ENCOUNTER → 2021-12-03 | Outpatient (CLI) | payer OTHER ==
[2021-12-03 10:13] LABS: Basophils # (auto) 0.1 10 ^3/uL (0-0.2); Basophils % (auto) 0.9 % (0.0-2.0); Eosinophils # (auto) 0.2 10 ^3/uL (0-0.8); Eosinophils % (auto) 4.3 % (0.0-7.0); Hematocrit 42.9 % (36.0-46.0); Hemoglobin 13.8 g/dL (12.2-16.2); Lymphocytes # (auto) 1.1 10 ^3/uL (0.4-5.4); Lymphocytes % (auto) 20.3 % (10.0-50.0); Mean Corpuscular Hemoglobin 28.1 pg (28.0-32.0); Mean Corpuscular Hgb Conc. 32.1 g/dL (32.0-36.0); Mean Corpuscular Volume 87.6 fL (80.0-100.0); Monocytes # (auto) 0.7 10 ^3/uL (0-1.3); Monocytes % (auto) 12.4 % (0.0-12.0); Neutrophils # (auto) 3.5 10 ^3/uL (1.6-8.6); Neutrophils % (auto) 62.1 % (37.0-80.0); Red Cell Distribution Width 13.3 % (11.8-14.3); White Blood Cell 5.6 10^3/uL (4.4-10.8)
[2021-12-03 10:25] LABS: Urine Bacteria NONE SEEN /hpf (None Seen); Urine Blood Negative /uL (Negative); Urine Hyaline Cast FEW /lpf (0 - 2); Urine Specific Gravity 1.015 (1.001-1.035); Urine WBC 20 /hpf (0 - 5)
[2021-12-03 10:37] LABS: Albumin 3.6 g/dL (3.4-5.0); Calcium 9.2 mg/dL (8.5-10.1); Potassium 4.5 mmol/L (3.5-5.1)
[2021-12-03 10:42] LABS: BUN/Creatinine Ratio 18.4; Bilirubin, Total 0.7 mg/dL (0.2-1.0); Phosphorus 3.7 mg/dL (2.5-4.90)
== END | disposition home or self-care (01) ==
LOC: LAB 09:33
PROVIDERS: ATTEND Internal Medicine
DX: I12.9 Hypertensive chronic kidney disease with stage 1 through stage 4 chronic kidney disease, or unspecified chronic kidney disease (principal); N18.30 Chronic kidney disease, stage 3 unspecified
CPT/HCPCS: 36415; 80053; 80061; 81001; 82043; 82088; 82384; 83970; 84100; 84439; 84443; 84550; 85025; 85652

== ENCOUNTER → 2022-01-10 | Outpatient (CLI) | payer OTHER | END | disposition home or self-care (01) | LOC: LAB 14:55 | PROVIDERS: ATTEND Internal Medicine Gastroenterology | DX: R19.7 Diarrhea, unspecified (principal) | CPT/HCPCS: 85048; 87045; 87086; 87427; 87493 ==

== ENCOUNTER → 2022-04-06 | Outpatient (CLI) | payer OTHER | END | disposition home or self-care (01) | LOC: LAB 14:24 | PROVIDERS: ATTEND Internal Medicine Gastroenterology | DX: A04.72 Enterocolitis due to Clostridium difficile, not specified as recurrent (principal) | CPT/HCPCS: 87493 ==

== ENCOUNTER → 2022-06-13 | Outpatient (CLI) | payer OTHER ==
[2022-06-13 12:12] LABS: Basophils # (auto) 0.1 10 ^3/uL (0-0.2); Basophils % (auto) 0.7 % (0.0-2.0); Eosinophils # (auto) 0.2 10 ^3/uL (0-0.8); Eosinophils % (auto) 2.9 % (0.0-7.0); Hematocrit 45.2 % (36.0-46.0); Hemoglobin 14.7 g/dL (12.2-16.2); Lymphocytes # (auto) 1.5 10 ^3/uL (0.4-5.4); Mean Corpuscular Hemoglobin 28.4 pg (28.0-32.0); Mean Corpuscular Hgb Conc. 32.5 g/dL (32.0-36.0); Mean Corpuscular Volume 87.4 fL (80.0-100.0); Monocytes # (auto) 0.7 10 ^3/uL (0-1.3); Monocytes % (auto) 9.7 % (0.0-12.0); Neutrophils % (auto) 66.7 % (37.0-80.0); Nucleated Red Blood Cells % 0.2 %; Red Blood Cells 5.17 10^6/uL (4.0-5.20); White Blood Cell 7.5 10^3/uL (4.4-10.8)
[2022-06-13 12:58] LABS: Potassium 4.4 mmol/L (3.5-5.1)
[2022-06-13 13:07] LABS: Albumin 3.9 g/dL (3.4-5.0); Bilirubin, Total 0.6 mg/dL (0.2-1.0); Calcium 8.9 mg/dL (8.5-10.1); Total Protein 7.3 g/dL (6.4-8.2); Uric Acid 7.5 mg/dL (2.6-6.0)
== END | disposition home or self-care (01) ==
LOC: LAB 10:42
PROVIDERS: ATTEND Internal Medicine
DX: I12.9 Hypertensive chronic kidney disease with stage 1 through stage 4 chronic kidney disease, or unspecified chronic kidney disease (principal); N18.30 Chronic kidney disease, stage 3 unspecified
CPT/HCPCS: 36415; 80053; 82043; 82306; 84439; 84443; 84550; 85025